=== PATIENT | male | born 1965 | race Caucasian/White ===

== ENCOUNTER → 2021-07-17 21:35 | Emergency (ER) | payer OTHER, SELFPAY ==
[~2021-07-17 21:35] MED LIST: Iopamidol 300 61% 100 ML VIAL FS ONE; Ketorolac Tromethamine 30 MG/ML VIAL ONE; Lorazepam 2 MG/ML VIAL ONE
[2021-07-17 22:48] LABS: #Basophils 0.1 10x3/uL (0.0-0.2); #Eosinphils 0.2 10x3/uL (0.0-0.5); #Monocytes 0.8 10x3/uL (0.0-1.1); #Neutrophils 5.3 10x3/uL (1.5-8.4); %Basophils 0.7 % (0.0-2.0); %Eosinophils 1.8 % (0.0-6.0); %Lymphocytes 30.3 % (18.0-47.0); %Monocytes 8.4 % (0.0-10.0); %Neutrophils 58.5 % (40.0-75.0); Hemoglobin 13.9 g/dL (13.5-17.5); Mean Corpuscular HGB CONC 35.3 g/dL (32.0-36.0); Mean Corpuscular Hemoglobin 32.1 pg (27.0-33.0); Mean Platelet Volume 8.7 fl (7.4-10.4); Platelet Count 306 10x3/uL (150-450); RBC Distribution Width 13.1 % (11.5-14.5); Red Blood Cell (RBC) Count 4.33 10x6/uL (4.32-5.72); White Blood Cell (WBC) Count 9.1 10x3/uL (3.5-10.5)
[2021-07-17 22:53] LABS: Bilirubin Neg (Negative); Blood, Urine 10 (Negative); Clarity Clear (Clear); Glucose, Urine (Dipstick) Normal (Negative); Ketone, Urine Negative (Negative); Leukocyte Negative (Negative); Nitrite Negative (Negative); Protein, Urine (Dipstick) Negative (Neg-Trace); Specific Gravity, Urine 1.005 (1.002-1.036); Urobilinogen Normal mg/dL (Less than 2)
[2021-07-17 23:02] LABS: ALT (SGPT) 11 U/L (8-55); AST (SGOT) 25 U/L (5-34); Albumin 4.5 g/dL (3.5-5.0); Alkaline Phosphatase 67 U/L (40-110); Anion Gap 21 mmol/L (10-20); BUN (Urea Nitrogen) 8 mg/dL (8.4-25.7); Bilirubin, Total 0.4 mg/dL (0.2-1.2); Calc. Creatinine Clearance 0 mL/min (70-130); Carbon Dioxide 16 mmol/L (22-29); Chloride 105 mmol/L (98-107); Globulin 2.3 g/dL (2.4-3.5); Glucose 81 mg/dL (70-105); Lipase 34 U/L (8-78); Magnesium 2.2 mg/dL (1.6-2.6); Potassium 4.2 mmol/L (3.5-5.1); Protein, Total 6.8 g/dL (6.0-8.3); Sodium 138 mmol/L (136-145)
[2021-07-17 23:08] LABS: RBC/HPF 0-3 HPF (0-3); Squamous Epithelial 0-3 HPF (0-3); WBC/HPF 0-3 HPF (0-3)
[2021-07-17 23:09] LABS: Bacteria/HPF Rare-Few HPF (None Seen)
== END | disposition home or self-care (01) ==
LOC: CSHERS 21:35
DX: M17.12 Unilateral primary osteoarthritis, left knee (principal); J44.9 Chronic obstructive pulmonary disease, unspecified; F17.210 Nicotine dependence, cigarettes, uncomplicated; M25.462 Effusion, left knee
CPT/HCPCS: 71045; 74177; 80053; 81003; 81015; 83690; 83735; 84484; 85025; 93005; 96372; 96374; J1885; J2060; Q9967

== ENCOUNTER 2022-05-07 20:17 | Emergency (ER) | payer SELFPAY ==
[2022-05-07] MEDS ORDERED: predniSONE 20 MG TAB ONE (20:47)
[2022-05-07] MEDS ORDERED: Ipratropium/Albuterol 3 ML NEB ONE (20:56)
[2022-05-07 21:19] LABS: #Basophils 0.1 10x3/uL (0.0-0.2); #Eosinphils 0.2 10x3/uL (0.0-0.5); #Monocytes 0.8 10x3/uL (0.0-1.1); #Neutrophils 3.8 10x3/uL (1.5-8.4); %Basophils 0.8 % (0.0-2.0); %Eosinophils 1.8 % (0.0-6.0); %Lymphocytes 46.2 % (18.0-47.0); %Monocytes 8.5 % (0.0-10.0); %Neutrophils 42.6 % (40.0-75.0); Hemoglobin 15.4 g/dL (13.5-17.5); Mean Corpuscular HGB CONC 34.7 g/dL (32.0-36.0); Mean Corpuscular Hemoglobin 31.7 pg (27.0-33.0); Mean Corpuscular Volume 91.4 fl (81.2-95.1); Mean Platelet Volume 8.3 fl (7.4-10.4); Platelet Count 291 10x3/uL (150-450); RBC Distribution Width 13.2 % (11.5-14.5); Red Blood Cell (RBC) Count 4.86 10x6/uL (4.32-5.72); White Blood Cell (WBC) Count 8.9 10x3/uL (3.5-10.5)
[2022-05-07 21:24] LABS: ALT (SGPT) 14 U/L (8-55); AST (SGOT) 22 U/L (5-34); Albumin 4.7 g/dL (3.5-5.0); Alkaline Phosphatase 68 U/L (40-110); Anion Gap 16 mmol/L (10-20); BUN (Urea Nitrogen) 10 mg/dL (8.4-25.7); Bilirubin, Total 0.4 mg/dL (0.2-1.2); Calc. Creatinine Clearance 0 mL/min (70-130); Carbon Dioxide 22 mmol/L (22-29); Chloride 101 mmol/L (98-107); Estimated GFR 100; Globulin 2.5 g/dL (2.4-3.5); Glucose 86 mg/dL (70-105); Potassium 3.8 mmol/L (3.5-5.1); Protein, Total 7.2 g/dL (6.0-8.3); Sodium 135 mmol/L (136-145)
== END 2022-05-07 22:44 | disposition home or self-care (01) ==
LOC: CSHERS 20:17
DX: J44.1 Chronic obstructive pulmonary disease with (acute) exacerbation (principal); F17.210 Nicotine dependence, cigarettes, uncomplicated
CPT/HCPCS: 71045; 80053; 83880; 84484; 85025; 93005; 94644; 94760; J7512; J7611; J7620

== ENCOUNTER 2023-08-24 10:35 | Observation (INO) | payer SELFPAY ==
[2023-08-24] MEDS ORDERED: Acetaminophen 500 MG TAB ONE (11:00)
[2023-08-24 11:12] LABS: #Basophils 0.05 10x3/uL (0.0-0.2); #Eosinphils 0.08 10x3/uL (0.0-0.5); #Monocytes 0.71 10x3/uL (0.0-1.1); #Neutrophils 5.53 10x3/uL (1.5-8.4); %Basophils 0.5 % (0.0-2.0); %Eosinophils 0.9 % (0.0-6.0); %Monocytes 7.8 % (0.0-10.0); %Neutrophils 60.6 % (40.0-75.0); Hematocrit 39.9 % (38.8-50.0); Hemoglobin 14.6 g/dL (13.5-17.5); Mean Corpuscular HGB CONC 36.6 g/dL (32.0-36.0); Mean Corpuscular Volume 90.1 fL (81.2-95.1); Mean Platelet Volume 8.4 fL (7.4-10.4); Platelet Count 283 10x3/uL (150-450); RBC Distribution Width 12.3 % (11.5-14.5); Red Blood Cell (RBC) Count 4.43 10x6/uL (4.32-5.72); White Blood Cell (WBC) Count 9.1 10x3/uL (3.5-10.5)
[2023-08-24 11:27] LABS: ALT (SGPT) 10 U/L (8-55); AST (SGOT) 17 U/L (5-34); Albumin 3.9 g/dL (3.5-5.0); Alkaline Phosphatase 71 U/L (40-110); Anion Gap 15 mmol/L (10-20); BUN (Urea Nitrogen) 10 mg/dL (8.4-25.7); Bilirubin, Total 0.4 mg/dL (0.2-1.2); Calc. Creatinine Clearance 0 mL/min (70-130); Carbon Dioxide 21 mmol/L (22-29); Chloride 104 mmol/L (98-107); Estimated GFR 101; Globulin 2.7 g/dL (2.4-3.5); Glucose 84 mg/dL (70-105); Lipase 41 U/L (8-78); Potassium 3.6 mmol/L (3.5-5.1); Protein, Total 6.6 g/dL (6.0-8.3); Sodium 136 mmol/L (136-145)
[2023-08-24] MEDS ORDERED: Ipratropium/Albuterol 3 ML NEB ONE (11:37)
[2023-08-24 11:55] LABS: Acetaminophen Less than 10 mcg/mL (10.0-30.0); Alcohol 74.9 mg/dL (Less than 10); Salicylate Less than 8.0 mg/dL (15.0-30.0)
[2023-08-24 12:02] LABS: Troponin I Less than 0.010 ng/mL (< 0.028)
[2023-08-24] MEDS ORDERED: Lorazepam 1 MG TAB PO PRN (13:52)
[2023-08-24] MEDS ORDERED: Lorazepam 2 MG/ML VIAL IM PRN (13:52)
[2023-08-24] MEDS ORDERED: Acetaminophen 325 MG TAB PO PRN (13:52)
[2023-08-24] MEDS ORDERED: Loperamide HCl 2 MG CAP PO PRN ×2 (13:52)
[2023-08-24] MEDS ORDERED: Ondansetron ODT 4 MG TAB PO PRN ×2 (13:52)
[2023-08-24] MEDS ORDERED: Senokot S 8.6-50 MG TAB PO PRN (13:52)
[2023-08-24] MEDS ORDERED: Bisacodyl 5 MG TAB PO PRN (13:52)
[2023-08-24 13:58] LABS: Bilirubin Neg (Negative); Blood, Urine Negative (Negative); Clarity Clear (Clear); Glucose, Urine (Dipstick) Normal (Negative); Ketone, Urine Negative (Negative); Leukocyte Negative (Negative); Nitrite Negative (Negative); Protein, Urine (Dipstick) Negative (Neg-Trace); Urobilinogen Normal mg/dL (Less than 2)
[2023-08-24] MEDS ORDERED: Electrolyte Replacement Protocol 1 EACH FS SCH ×2 (14:00)
[2023-08-24] MEDS ORDERED: Lorazepam 1 MG TAB PO SCH (14:00)
[2023-08-24 14:05] LABS: Amphetamine Not Detected (NotDetected); Barbiturates Screen Not Detected (NotDetected); Benzodiazepine Screen Not Detected (NotDetected); Cocaine Metabolite Screen Not Detected (NotDetected); Methadone Not Detected (NotDetected); Methamphetamine Not Detected (NotDetected); Opiate Screen Not Detected (NotDetected); Oxycodone Screen Not Detected (NotDetected); Phencyclidine (PCP) Not Detected (NotDetected); THC/Cannabinoid Screen Not Detected (NotDetected); Tricyclic Screen Not Detected (NotDetected)
[2023-08-24 14:18] LABS: Bacteria/HPF Rare-Few HPF (None Seen); CAUTI Indications for Culture Pelvic or flank pain; RBC/HPF 0-3 HPF (0-3); Squamous Epithelial None Seen HPF (0-3); WBC/HPF None Seen HPF (0-3)
[2023-08-24 14:19] LABS: Urine Culture Reflex No No
[2023-08-24 14:38] LABS: Magnesium 1.9 mg/dL (1.6-2.6); Phosphorus 3.3 mg/dL (2.3-4.7)
[2023-08-24] MEDS ORDERED: Iopamidol 300 61% 100 ML VIAL FS ONE (14:59)
[2023-08-24 15:15] VITALS: BMI 31.3
[2023-08-24] MEDS: Folic Acid 1 MG TAB PO SCH (16:03)
[2023-08-24] MEDS: Multivit, Therapeutic 1 TAB PO SCH (16:03)
[2023-08-24] MEDS: Magnesium 2 GM/50 ML(in water) 2 GM in Premix 1 BAG IVPB SCH (16:03)
[2023-08-24] MEDS: Thiamine HCl 200 MG/2 ML VIAL SLOW IVP SCH (16:03)
[2023-08-24] MEDS ORDERED: Ipratropium/Albuterol 3 ML NEB NEB PRN (16:38)
[2023-08-24] MEDS: Lactated Ringer's 1,000 ML IV SCH (17:53)
[2023-08-24] MEDS: Famotidine 20 MG TAB PO SCH (21:53)
[2023-08-25 05:16] LABS: #Basophils 0.06 10x3/uL (0.0-0.2); #Eosinphils 0.17 10x3/uL (0.0-0.5); #Monocytes 0.68 10x3/uL (0.0-1.1); #Neutrophils 6.22 10x3/uL (1.5-8.4); %Basophils 0.7 % (0.0-2.0); %Eosinophils 1.9 % (0.0-6.0); %Lymphocytes 21.5 % (18.0-47.0); %Monocytes 7.5 % (0.0-10.0); %Neutrophils 68.1 % (40.0-75.0); Hematocrit 41.3 % (38.8-50.0); Hemoglobin 14.8 g/dL (13.5-17.5); Mean Corpuscular HGB CONC 35.8 g/dL (32.0-36.0); Mean Corpuscular Hemoglobin 32.7 pg (27.0-33.0); Mean Corpuscular Volume 91.4 fL (81.2-95.1); Mean Platelet Volume 8.6 fL (7.4-10.4); Platelet Count 264 10x3/uL (150-450); RBC Distribution Width 12.6 % (11.5-14.5); Red Blood Cell (RBC) Count 4.52 10x6/uL (4.32-5.72); White Blood Cell (WBC) Count 9.1 10x3/uL (3.5-10.5)
[2023-08-25 05:26] LABS: Anion Gap 14 mmol/L (10-20); BUN (Urea Nitrogen) 10 mg/dL (8.4-25.7); Calc. Creatinine Clearance 130 mL/min (70-130); Calcium 8.6 mg/dL (7.8-10.44); Carbon Dioxide 22 mmol/L (22-29); Chloride 107 mmol/L (98-107); Estimated GFR 103; Glucose 99 mg/dL (70-105); Magnesium 2.1 mg/dL (1.6-2.6); Potassium 4.1 mmol/L (3.5-5.1); Sodium 139 mmol/L (136-145)
[2023-08-25] MEDS: Multivit, Therapeutic 1 TAB PO SCH (09:55)
[2023-08-25] MEDS: Folic Acid 1 MG TAB PO SCH (09:55)
[2023-08-25] MEDS: Enoxaparin 40 MG (0.4 mL) SYRINGE SC SCH (09:58)
[2023-08-25 10:00] VITALS: BMI 31.3
[2023-08-25] MEDS ORDERED: Lorazepam 1 MG TAB PO PRN (13:53)
[2023-08-25 16:46] VITALS: BP 135/69; TEMP 98
[2023-08-26] MEDS ORDERED: Lorazepam 1 MG TAB PO PRN (13:53)
[2023-08-26] MEDS ORDERED: Lorazepam 0.5 MG TAB PO SCH (14:00)
[2023-08-27] MEDS ORDERED: Thiamine 100 MG TAB PO SCH (09:00)
[2023-08-27] MEDS ORDERED: Lorazepam 0.5 MG TAB PO PRN (13:53)
== END 2023-08-25 19:05 | disposition home or self-care (01) ==
LOC: CSHERS 10:35 → CSHTELE 14:41
PROVIDERS: ADMIT Family Medicine; ATTEND Family Medicine
DX: R55 Syncope and collapse (principal); K42.9 Umbilical hernia without obstruction or gangrene; J44.9 Chronic obstructive pulmonary disease, unspecified; F10.129 Alcohol abuse with intoxication, unspecified; F17.210 Nicotine dependence, cigarettes, uncomplicated
CPT/HCPCS: 36415; 70450; 74177; 80048; 80053; 80306; 80307; 81001; 83690; 83735; 83880; 84100; 84443; 84484; 85025; 85379; 93005; 93306; 94640; 94760; 96374; 96375; 96376; G0378; J3411; J3475; J7120; J7620; Q9967

== ENCOUNTER 2024-10-13 15:57 | Emergency (ER) | payer OTHER | END 2024-10-13 16:14 | disposition home or self-care (01) | LOC: CSHERS 15:57 | DX: L03.317 Cellulitis of buttock (principal); J44.9 Chronic obstructive pulmonary disease, unspecified; F17.210 Nicotine dependence, cigarettes, uncomplicated; Z55.6 Problems related to health literacy ==